=== PATIENT | female | born 1985 | race Caucasian/White ===

== ENCOUNTER 2017-02-22 17:46 | Emergency (ER) | payer MEDICAID ==
[~2017-02-22] VITALS: Ht 170.2 cm; Wt 56.7 kg
[2017-02-22 19:45] VITALS: BP 124/71
[2017-02-22] MEDS ORDERED: HYDROcodone-ACET 7.5/325MG TAB PO ONE (20:00)
== END 2017-02-22 21:37 | disposition home or self-care (01) ==
LOC: ER 17:46 → EDUNIT# 17:46 → ER 21:16
DX: S02.2XXA Fracture of nasal bones, initial encounter for closed fracture (principal); S00.83XA Contusion of other part of head, initial encounter; Y08.89XA Assault by other specified means, initial encounter; Y93.89 Activity, other specified; Y99.8 Other external cause status; Y92.89 Other specified places as the place of occurrence of the external cause
CPT/HCPCS: 70450; 70486; 71020; 71101

== ENCOUNTER 2017-02-25 13:46 | Emergency (ER) | payer MEDICAID ==
[~2017-02-25] VITALS: Ht 170.2 cm; Wt 59.0 kg
[2017-02-25 13:54] VITALS: BP 122/70
== END 2017-02-25 15:14 | disposition left against medical advice (07) ==
LOC: EDUNIT# 13:46 → ER 13:52
DX: S46.911A Strain of unspecified muscle, fascia and tendon at shoulder and upper arm level, right arm, initial encounter (principal); M54.2 Cervicalgia; F17.210 Nicotine dependence, cigarettes, uncomplicated; F12.10 Cannabis abuse, uncomplicated; F15.10 Other stimulant abuse, uncomplicated; V49.40XA Driver injured in collision with unspecified motor vehicles in traffic accident, initial encounter; Y93.89 Activity, other specified; Y99.8 Other external cause status; Y92.89 Other specified places as the place of occurrence of the external cause
CPT/HCPCS: 73030

== ENCOUNTER 2017-06-22 17:18 | Emergency (ER) | payer MEDICAID ==
[~2017-06-22] VITALS: Ht 170.2 cm; Wt 60.3 kg
[2017-06-22 17:31] VITALS: BP 119/73
== END 2017-06-22 20:36 | disposition home or self-care (01) ==
LOC: ER 17:46
DX: S80.01XA Contusion of right knee, initial encounter (principal); S80.11XA Contusion of right lower leg, initial encounter; F17.210 Nicotine dependence, cigarettes, uncomplicated; F15.10 Other stimulant abuse, uncomplicated; F12.10 Cannabis abuse, uncomplicated; Y08.89XA Assault by other specified means, initial encounter; Y93.89 Activity, other specified; Y99.8 Other external cause status; Y92.89 Other specified places as the place of occurrence of the external cause
CPT/HCPCS: 73562

== ENCOUNTER 2019-03-28 13:50 | Emergency (ER) | payer MEDICAID ==
[~2019-03-28] VITALS: Ht 172.7 cm; Wt 68.0 kg
[2019-03-28] MEDS ORDERED: SODIUM CHLORIDE 0.9% 1,000 ML IVB ONE (14:09)
[2019-03-28 14:29] LABS: Urine Bacteria FEW /hpf (None Seen); Urine Blood Negative /uL (Negative); Urine Mucus FEW (None Seen); Urine Specific Gravity 1.011 (1.001-1.035); Urine WBC 65 /hpf (0 - 5)
[2019-03-28 14:37] LABS: Alcohol, Urine < 3.0 mg/dL (0-5)
[2019-03-28 14:40] LABS: Amphetamine Screen, Urine POSITIVE (NEGATIVE); Barbiturate Scree,Urine NEGATIVE (NEGATIVE); Benzodiazephine Screen, Urine NEGATIVE (NEGATIVE); Cannabinoid Screen, Urine POSITIVE (NEGATIVE); Cocaine Screen, Urine POSITIVE (NEGATIVE); Opiate Scree,Urine NEGATIVE (NEGATIVE); Phencyclidine Screen, Urine NEGATIVE (NEGATIVE)
[2019-03-28 15:25] LABS: Albumin 4.3 g/dL (3.4-5.0); Anion Gap 10 (5-15); Blood Alcohol < 3.0 mg/dL (0-5); Blood Urea Nitrogen 9 mg/dL (7-18); Calcium 9.7 mg/dL (8.5-10.1); Carbon Dioxide 27 mmol/L (21-32); Chloride 106 mmol/L (98-107); Glucose 98 mg/dL (74-106); Magnesium 2.3 mg/dL (1.6-2.6); Potassium 4.5 mmol/L (3.5-5.1); Sodium 143 mmol/L (136-145)
[2019-03-28 15:29] LABS: Alanine Aminotransferase 33 U/L (13-56); Alkaline Phosphatase 83 U/L (45-117); Aspartate Aminotransferase 26 U/L (15-37); BUN/Creatinine Ratio 9.2; Bilirubin, Total 0.5 mg/dL (0.2-1.0); GFR African American 84 mL/min; GFR Non-African American 69 mL/min; Total Protein 8.2 g/dL (6.4-8.2)
[2019-03-28] MEDS ORDERED: LORazepam 2MG/ML-1ML VIAL IV ONE (15:45)
[2019-03-28 15:57] LABS: Basophils # (auto) 0 uL; Basophils % (auto) 0.3 % (0.0-2.0); Eosinophils # (auto) 0 uL; Eosinophils % (auto) 0.4 % (0.0-7.0); Hematocrit 45.5 % (36.0-46.0); Hemoglobin 15.5 g/dL (12.2-16.2); Lymphocytes # (auto) 1.5 uL; Lymphocytes % (auto) 16.7 % (10.0-50.0); Mean Corpuscular Hemoglobin 30.6 pg (28.0-32.0); Mean Corpuscular Hgb Conc. 34.1 g/dL (32.0-36.0); Mean Corpuscular Volume 89.6 fL (80.0-100.0); Monocytes # (auto) 0.4 uL; Monocytes % (auto) 4.9 % (0.0-12.0); Neutrophils # (auto) 7.1 uL; Neutrophils % (auto) 77.7 % (37.0-80.0); Platelet Count (auto) 355 10^3/uL (140-450); Red Blood Cells 5.08 10^6/uL (4.0-5.20); Red Cell Distribution Width 13.6 % (11.8-14.3); White Blood Cell 9.1 10^3/uL (4.4-10.8)
[2019-03-28 16:33] VITALS: BP 153/105
[2019-03-28] MEDS ORDERED: NITROFURANTOIN (MONO) 100 mg CAP PO ONE (17:30)
== END 2019-03-28 17:56 | disposition home or self-care (01) ==
LOC: EDBD 13:50 → ER 13:58
DX: F41.9 Anxiety disorder, unspecified (principal); R56.9 Unspecified convulsions; N39.0 Urinary tract infection, site not specified; F19.10 Other psychoactive substance abuse, uncomplicated; F17.210 Nicotine dependence, cigarettes, uncomplicated; F12.90 Cannabis use, unspecified, uncomplicated; F14.90 Cocaine use, unspecified, uncomplicated; F15.90 Other stimulant use, unspecified, uncomplicated
CPT/HCPCS: 36415; 70450; 80053; 80307; 80320; 81001; 81025; 83735; 85025; 96374; 99284; J2060

== ENCOUNTER 2019-07-09 04:26 | Emergency (ER) | payer OTHER, MEDICAID ==
[~2019-07-09] VITALS: Ht 172.7 cm; Wt 63.5 kg
[2019-07-09] MEDS ORDERED: LIDOCAINE 1% HCL (LOCAL ANESTH.) INJ 20ML MDV IJ ONE (06:30)
[2019-07-09 06:47] VITALS: BP 156/94
[2019-07-09] MEDS ORDERED: ALPRAZolam 0.5 MG TAB PO ONE (07:30)
== END 2019-07-09 07:33 | disposition home or self-care (01) ==
LOC: ER 04:26
DX: S91.311A Laceration without foreign body, right foot, initial encounter (principal); F17.210 Nicotine dependence, cigarettes, uncomplicated; F12.10 Cannabis abuse, uncomplicated; F15.10 Other stimulant abuse, uncomplicated; F11.10 Opioid abuse, uncomplicated; F14.10 Cocaine abuse, uncomplicated; I10 Essential (primary) hypertension; F41.9 Anxiety disorder, unspecified; F32.9 Major depressive disorder, single episode, unspecified; W25.XXXA Contact with sharp glass, initial encounter; Y93.01 Activity, walking, marching and hiking; Y92.090 Kitchen in other non-institutional residence as the place of occurrence of the external cause; Y99.8 Other external cause status
CPT/HCPCS: 12002; 73620; 99283; J2001

== ENCOUNTER 2023-06-29 09:16 | Emergency (ER) | payer MEDICAID, OTHER ==
[~2023-06-29] VITALS: Ht 172.7 cm; Wt 65.0 kg
[2023-06-29 09:23] VITALS: BP 114/72; PULSE 78; RESP 14; O2SAT 97
[2023-06-29] MEDS ORDERED: LORazepam 0.5 MG TAB PO ONE (09:45)
[2023-06-29 09:47] LABS: Urine Bacteria MOD /hpf (None Seen); Urine Blood Negative /uL (Negative); Urine Hyaline Cast FEW /lpf (0 - 2); Urine Mucus FEW (None Seen); Urine Specific Gravity 1.024 (1.001-1.035); Urine WBC 49 /hpf (0 - 5)
[2023-06-29] MEDS ORDERED: PROCHLORPERAZINE EDISYLATE 5 MG/ML 2ML VIAL IV ONE (10:45)
[2023-06-29] MEDS ORDERED: PANTOPRAZOLE 40 MG/10 ML VIAL INJ IV ONE (10:45)
[2023-06-29] MEDS ORDERED: SODIUM CHLORIDE 0.9% 1,000 ML IV ONE (10:45)
[2023-06-29] MEDS ORDERED: cefTRIAXone 1GM/50ML D5W 50 ML IV ONE (10:45)
[2023-06-29] MEDS ORDERED: ZOFR4T PO (14:23)
[2023-06-29] MEDS ORDERED: CIPR-173 PO (14:23)
== END 2023-06-30 07:20 | disposition home or self-care (01) ==
LOC: ER 09:16 → EDBD 09:16 → ER 06-30 07:20
DX: N39.0 Urinary tract infection, site not specified (principal); R11.2 Nausea with vomiting, unspecified; I10 Essential (primary) hypertension; F17.210 Nicotine dependence, cigarettes, uncomplicated; F12.10 Cannabis abuse, uncomplicated; F15.10 Other stimulant abuse, uncomplicated; F14.10 Cocaine abuse, uncomplicated; F19.10 Other psychoactive substance abuse, uncomplicated; Z88.6 Allergy status to analgesic agent
CPT/HCPCS: 81001; 96365; 96375; 99284; C9113; J0696; J0780; J7030

== ENCOUNTER 2025-10-25 22:39 | Emergency (ER) | payer MEDICAID ==
[~2025-10-25] VITALS: Ht 152.4 cm; Wt 72.0 kg
[~2025-10-25 22:39] MED LIST: CIPR-173 PO; ZOFR4T PO
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
[2025-10-25 23:09] LABS: Hematocrit 44.5 % (36.0-46.0); Hemoglobin 15.4 g/dL (12.2-16.2); Mean Corpuscular Hemoglobin 31.0 pg (28.0-32.0); Mean Corpuscular Volume 89.2 fL (80.0-100.0); Nucleated Red Blood Cells % 0.0 %
[2025-10-25 23:26] LABS: Potassium 4.4 mmol/L (3.5-5.1)
[2025-10-25 23:27] LABS: Anion Gap 8 (5-15); Calcium 9.7 mg/dL (8.7-10.4); Carbon Dioxide 25 mmol/L (20-31); Chloride 113 mmol/L (98-107); Sodium 146 mmol/L (136-145)
[2025-10-25 23:32] LABS: BUN/Creatinine Ratio 14.7 (10.0-20.0); Blood Urea Nitrogen 15 mg/dL (9-23)
[2025-10-25 23:33] LABS: Glucose 114 mg/dL (74-106)
[2025-10-25 23:36] LABS: Acetaminophen < 2.0 UG/ML (10.0-20.0); Salicylate < 3.0 mg/dL (-30)
[2025-10-26] MEDS: SODIUM CHLORIDE 0.9% 1,000 ML IV ONE
[2025-10-26] MEDS ORDERED: NITROGLYCERIN 0.4 MG SL TAB SL PRN
[2025-10-26] MEDS ORDERED: MORPHINE SULFATE INJ 2 MG/ml SYRG IV PRN
[2025-10-26] MEDS ORDERED: ONDANSETRON HCL 4 MG/2 ML VIAL IV PRN
[2025-10-26] MEDS: diphenhydrAMINE HCL 50 MG/1 ML VL IM ONE (01:16)
[2025-10-26] MEDS: LORazepam 2MG/ML-1ML VIAL IM ONE (01:16)
[2025-10-26] MEDS: HALOPERIDOL LACTATE 5 MG/ML INJ VIAL IM ONE (01:16)
[2025-10-26 05:20] LABS: Urine Protein, UAD Negative (Negative)
[2025-10-26 07:15] VITALS: RESP 16
[2025-10-26] MEDS: ONDANSETRON HCL 4 MG/2 ML VIAL IV ONE (09:46)
[2025-10-26 11:15] VITALS: BP 144/71; PULSE 80; RESP 12; TEMP 98; O2SAT 97
== END 2025-10-26 11:41 | disposition home or self-care (01) ==
LOC: EDBD 22:39 → ER 22:39 → UNDOADMIN 23:54 → OVERFLOW 23:54 → UNDODEPER 10-26 09:44 → ER 10-26 11:41
DX: T43.211A Poisoning by selective serotonin and norepinephrine reuptake inhibitors, accidental (unintentional), initial encounter (principal); F10.920 Alcohol use, unspecified with intoxication, uncomplicated; F41.9 Anxiety disorder, unspecified; I10 Essential (primary) hypertension; F32.A Depression, unspecified; Z79.899 Other long term (current) drug therapy; Z98.890 Other specified postprocedural states; Y92.89 Other specified places as the place of occurrence of the external cause
CPT/HCPCS: 36415; 80048; 80320; 80329; 81001; 85025; 96361; 96372; 96374; 99285; J1200; J1630; J2060; J2405; J7030; 99291